=== PATIENT | male | born 1970 | race Caucasian/White ===

== ENCOUNTER 2024-06-15 18:37 | Emergency (ER) | payer OTHER, SELFPAY ==
[2024-06-15] VITALS (9 sets, daily range): BP systolic 117–131; BP diastolic 77–88; PULSE 74–88; RESP 18–19; TEMP 36.3–36.6; O2SAT 94–98
--- NOTE | ~2024-06-15 | XR_ITS ---
XR chest 2V Ordering provider: Diane Cook PA-C History: 53 years Male with . cough . Comparison: None. FINDINGS: MEDIASTINUM: The cardiac silhouette is not enlarged. Prominent both tavares. LUNGS: No infiltrates, effusions or pneumothorax. Density seen in the right and left lower lobes whic h may be a nipple shadows. Repeat exam with nipple markers advised.. OTHER: No free air under the diaphragm. Degenerative changes of the spine. IMPRESSION: No acute cardiopulmonary pathology. Reviewed, dictated and finalized at location A.
--- OUTSIDE RECORDS SUMMARY | 2024-06-15 18:40 | XMS_ITS | Data Portability ---
Author Organization [facility], [facility] IP Address [address] [place] [id number] Care Team Providers Care Stock Analyst Name Role Phone RAFAEL SCHWAB Referring Provider [phone] JOANNE LOPEZ Primary Care Provider [phone] Assessment Encounter Date Assessment Date Assessment LastModified by Organization Details LastModified Time 11/26/2016 11/26/2016 IMPRESSION: Numbness for evaluation. Rule out carpal tunnel syndrome. Recommend nerve conduction studies of bilateral upper extremities. He will be seen again in followup after the nerve conduction studies. No focal neurological deficits are elicited at this time. History of neck surgery for numbness in the arms and legs before, 4 years ago. [email or web address] Not available 12/02/2016 12:59:32 Plan of Treatment Reminders Order Date Submit Date Provider Last Modified By Organization Details Last Modified Time Details Appointments None record ed. Lab None record ed. Referral None record ed. Procedures None record ed. Surgeries None record ed. Imaging None record ed. Medication Orders None record ed. Patient TargetsNo targets recorded. Patient InstructionsNo instructions recorded. Reason for Referral None Reported. Problems Name Problem SNOMED Code Status Onset Date Resolution Date Notes Provider Name and Address Organization Details Recorded Time Numbness 33570130 Active [address] [facility] 11/26/2016 14:21:05 Problem Notes None recorded. Medical Equipment None Reported. Allergies No known drug allergies Medications Name Sig Start Date Stop Date Status Note LastModified by Organization Details LastModified Time ibuprofen active Not Available Not Jerilyn ilable Not Available Vitals Date Recorded Body height Body mass index (BMI) Body weight Heart rate Systolic blood pressure Diastolic blood pressure Provider Name and Address Organization Details Last Updated DateTime 7 172.72 cm 31.2 kg/m2 83181.4 4 g 83 /min 141 mm[Hg] 95 mm[Hg] Carmen Sanchez [facility] 7 14:20:39 Social History Question Answer Notes LastModified by Organizat ion Details LastModified Time Tobacco Smoking Status Never Smoker Carmen orozco, [place] - [facility] 11/26/2016 14:21:15 What Was The Date Of Your Most Recent Tobacco Screening? 11/26/2016 Information n ot available 10/13/2018 Sex: Unknown Functional Status None recorded. Mental Status None recorded. Family History Nothing Reported. Medical History Condition Response Orthopedic Problems Y Past Encounters Encounter ID Performer Location Encounter Start Date Encounter Closed Date Diagnosis/Indication Diagnosis SNOMED-CT Code Diagnosis ICD10 Code Diagnosis Note [id number] [facility] [address] [place] [address] 11/26/2016 14:00:38 12/04/2016 10:07:43 Paresthesia of lower extremity 638970960 R20.2 Paresthesi a of upper limb 55465454 R20.2 Health Concerns Section Related Observation LastModified by Organization Detai ls LastModified Time None Recorded Concern Status LastModified by Organization Details LastModified Time None Recorded Advance Directives Directive None Recorded Payers Encounter Date Sequence Insurance Name Policy Number Policy Roche Covered Member ID Roche Member ID Guarantor Name 11/26/2016 1 *SELF PAY* [place] ex [place] Notes Date Note Type Note Provider Name and Address Organization Details Recorded Time 11/26/2016 text/html This is a 45-year-old male who was seen on neurological evaluation for tingling and numbness in the hands and the legs. He reports these symptoms are present for 2 months. He denies any trouble seeing, hearing or swallowing. Denies any bladder or bowel difficulties. He reports a history of surgery of the neck for some problem with gait and numbness [address] Marks. He says he had some x-rays of the C-spine done but reports are not available. Not Available [facility] 12/04/2016 10:09:14
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
--- OUTSIDE RECORDS SUMMARY | 2024-06-15 18:40 | XMS_ITS | CONTINUITY OF CARE DOCUMENT ---
Author Name adinajenniferdaniel Address Unknown Organization [facility] Address [address] [address] [facility] [address] [place] [address] Phone [phone] Care Team Providers Care Cigarette Roller Name Role Phone Augustin NIETO, Marylou Unavailable [phone] JESSICA NIETO, JOANNE Unavailable [phone] INSURANCE PROVIDERS Payer name Policy type / Coverage type [place] red republican ID HEALTHCARE AND FAMILY SERVICES Medicaid 2 [id number]
--- NOTE | 2024-06-15 18:53 | ED_ITS ---
HPI - SOB/Dyspnea General Chief Complaint: Shortness of Breath/Dyspnea Stated Complaint: cold symptoms, wheezing , nausea Time Seen by Provider: 06/15/24 18:45 History of Present Illness HPI Narrative: 53-year-old male presents emergency department for URI symptoms for the past 7- 10 days. Patient is reporting productive cough, nasal congestion, head fullness, wheezing, generalized malaise and fevers. Denies nausea vomiting diarrhea. States his is also ill similar symptoms. He went to his 's PCP yesterday at her appointment was advised to go to the ER for evaluation because the PCP did not take the patient's insurance. He denies history of asthma or COPD. He admits to smoking 10 cigarettes a day for the past 35 years. Related Data Allergies Allergy/AdvReac Type Severity Reaction Status Date / Time cephalexin AdvReac sue Verified 06/15/24 21:02 syndrome Review of Systems Review of Systems: All systems reviewed & are unremarkable except as noted in HPI and below Exam Narrative: GENERAL: Well-appearing, well-nourished, and in no acute distress. HEAD: Normocephalic, atraumatic. EYES: EOMI. ENT: Nares congested. Tenderness over the right ethmoid sinus. Mucous membranes moist. Posterior pharynx without erythema or edema, no tonsillar hypertrophy or exudates. Bilateral TMs are easley nonbulging with normal canals NECK: Supple. CHEST: Coarse breath sounds in all lung jaime, fine wheezing in the lower lung field HEART: Regular rate and rhythm. No murmur heard. Normal peripheral pulses. ABDOMEN: Soft, nontender, nondistended, normal active bowel sounds. EXTREMITIES: Normal range of motion. No edema. SKIN: Warm, dry, no rash. NEURO: No focal deficits. Alert and oriented x3 Course Vital Signs Vital signs: Vital Signs Blood Pressure 125/86 06/15/24 18:59 Pulse Oximetry 96 06/15/24 18:59 Temperature 97.4 F L 06/15/24 19:18 Pulse Rate 84 06/15/24 19:16 Respiratory Rate 19 06/15/24 19:15 Blood Pressure 124/77 06/15/24 20:00 Pulse Oximetry 94 06/15/24 20:35 Oxygen Delivery Room Air 06/15/24 20:35 MDM - SOB/Dyspnea MDM Narrative Medical decision making narrative: 53-year-old male presents emergency department for URI symptoms for the past 7- 10 days. Reported productive cough, wheezing, nasal congestion, sinus pressure. Triage vitals are stable. Patient is afebrile nontoxic appearing. Exam significant for the above. He does have coarse breath sounds and fine wheezing in the lower lung jaime and was given a DuoNeb with improvement. Oxygen saturations stable. Repeat lung exam is significantly improved. Viral swabs are negative. Chest x-ray shows no acute cardiopulmonary findings. Patient updated on results. Given duration of symptoms, will start the patient on doxycycline for sinusitis/bronchitis, Flonase and albuterol inhaler. Advised smoking cessation and follow-up with PCP. Discussed return precautions. He is agreeable with the plan verbalized understanding. Discharged in stable c ondition. Lab Data Labs: Lab Results 06/15/24 Range/Units 18:56 Influenza A (RT-PCR) Negative (Negative) Influenza B (RT-PCR) Negative (Negative) RSV (RT-PCR) Negative (Negative) SARS-CoV-2 RNA (RT-PCR) Negative (Negative) Discharge Plan Discharge Clinical Impression: Bronchitis Sinusitis Qualifiers: Sinusitis location: unspecified location Chronicity: acute Recurrence: not specified as recurrent Qualified Code(s): J01.90 - Acute sinusitis, unspecified Patient Disposition: Home, Self-Care Condition: Stable Instructions: Antibiotic Form, How to Stop Smoking (ED), Sinusitis (ED), Acute Bronchitis (ED) Additional Instructions: Your evaluated in the emergency department for sinus congestion, wheezing and cough. The chest x-ray shows no evidence of pneumonia. COVID and flu test were negative. Her presentation is consistent with a sinus infection and bronchitis. Please take the antibiotics as directed, use the Flonase and albuterol inhaler as prescribed. Please stop smoking. Follow-up with primary care. Return to the emergency department if you develop a fever 100.7 or greater, difficulty breathing, you are unable to tolerate food or fluids, or other concerning symptoms. Patient Language: Sami Prescriptions: New doxycycline monohydrate 100 mg capsule 100 mg PO BID Qty: 14 0RF albuterol sulfate 90 mcg/actuation HFA aerosol inhaler 1 inh inhalation QID PRN (Reason: shortness of breath or wheezing) Qty: 6.7 0RF fluticasone propionate [Flonase Allergy Relief] 50 mcg/actuation spray,suspension 1 spray intranasal Q12H Qty: 16 0RF Rx Instructions: administer into each nostril Follow-up/Referrals: Levi,Thien Barros MD [Primary Care Provider] - Raquel Porter DO [Physician] -
[2024-06-15] MEDS: IPRATROPIUM 0.5 MG/ALBUTEROL SULFATE 2.5 MG AMPUL.NEB 3 ML INHALATION (19:05)
--- OUTSIDE RECORDS SUMMARY | 2024-06-15 19:17 | XMS_ITS | Clinical Summary ---
Author Organization [facility] Address [address] [place] [address] Care Team Providers Care Securities Adviser Name Role Phone Unavailable Primary Care Provider Unavailabl e Social History Tobacco Use Types Packs/Day Years Used Date Smoking Tobacco: Never Assessed Sex and Gender Information Value Date Recorded Sex Assigned at Not on file Legal Sex Male 8:16 PM CDT Gender Identity Not on file Sexual Orientation Not on file Last Filed Vital Signs Vital Sign Reading Time Taken Comments Blood Pressure 116/78 11/09/2016 10:10 AM CDT Pulse 55 11/09/2016 10:10 AM CDT Temperature - - Respiratory Rate - - Oxygen Saturation - - Inhaled Oxygen Concentration - - Weight 92.5 kg (204 lb) 11/09/2016 10:10 AM CDT Height 172.7 cm (5' 8 ) 11/09/2016 10:10 AM CDT Body Mass Index 31.02 11/09/2016 10:10 AM CDT Plan of Treatment Health Maintenance Due Date Last Done Comments Colorectal Cancer Screening Colonoscopy (10 Years) 1971 Annual Physical 12/02/1974 Hepatitis C 12/02/1989 DTaP, Tdap and Td Vaccines ( 1 - Tdap) 12/02/1990 Hepatitis B Vaccines (1 of 3 - 19+ 3-dose series) 12/02/1990 Zoster Vaccines (1 of 2) 12/02/2021 COVID-19 Vaccine (2023-2 5 season) 2023 Influenza Adult (#1) 2023 Meningococcal B Vaccine Aged Out No l onger eligible based on patient's age to complete this topic Meningococcal Vaccine Aged Out No koby starr eligible based on patient's age to complete this topic Pneumococcal Vaccine: Pediat rics (0 to 5 Years) and At-Risk Patients (6 to 64 Years) Aged Out No longer eligible b ased on patient's age to complete this topic RSV Immunizations Under 20 Months Aged Out No longer eligible based on patient's age to complete this topic Additional Health Concerns Infection Onset Date Last Indicated MRSA 04/10/2018 04/10/2018
--- OUTSIDE RECORDS SUMMARY | 2024-06-15 19:17 | XMS_ITS | Encounter Summary ---
Author Organization [facility] Address [address] [place] [address] Care Team Providers Care Lodging House Keeper Name Role Phone Unavailable Primary Care Provider Unavailabl e Encounter Details Date Type Department Care Team (Late st Contact Info) Description 11/09/2016 Abstract [facility] Conversion Md, Generic Conversion, Social History Tobacco Use Types Packs/Day Years Used Date Smoking Tobacco: Never Assessed Sex and Gender Information Value Date Recorded Sex Assigned at Not on file Legal Sex Male 8:16 PM CDT Gender Identity Not on file Sexual Orientation Not on file documented as of this encounter Plan of Treatment Not on file documented as of this encounter Visit Diagnoses Not on filedocumented in this encounter Additional Health Concerns Infection Onset Date Last Indicated Resolved Time MRSA 04/10/2018 04/10/2018 documented as of this encounter
--- OUTSIDE RECORDS SUMMARY | 2024-06-15 19:17 | XMS_ITS | CONTINUITY OF CARE DOCUMENT ---
Author Name adinajenniferdaniel Address Unknown Organization [facility] Address [address] [place] [address] Phone [phone] Care Team Providers Care Cell Geneticist Name Role Phone Augustin NIETO, Marylou Unavailable [phone] JESSICA NIETO, JOANNE Unavailable [phone] INSURANCE PROVIDERS Payer name Policy type / Coverage type [place] red libertarian ID [employer] AND FAMILY SERVICES Medicaid 2 [id number]
[2024-06-15 19:37] LABS: Influenza A QL RT-PCR Negative (Negative); Influenza B QL RT-PCR Negative (Negative); RSV RNA, RT-PCR Negative (Negative); SARS-CoV-2 RNA PCR Negative (Negative)
[2024-06-15] MEDS: DOXYCYCLINE HYCLATE 100 MG TABLET PO (21:06)
== END 2024-06-15 21:10 | disposition home or self-care (01) ==
PROVIDERS: Emergency Provider Physician Assistant; PCP Family Medicine
DX: J40 Bronchitis, not specified as acute or chronic (principal); J01.90 Acute sinusitis, unspecified; F17.210 Nicotine dependence, cigarettes, uncomplicated; Z20.822 Contact with and (suspected) exposure to COVID-19
CPT/HCPCS: 71046; 87637; 94640; 99283; A9270

== ENCOUNTER 2024-09-18 18:09 | Emergency (ER) | payer OTHER, SELFPAY ==
--- NOTE | ~2024-09-18 | CT_ITS ---
EXAMINATION: CT lumbar spine wo con DATE: 09/18/2024 18:35 INDICATION: back pain . TECHNIQUE: Computed tomography (CT) of the lumbar spine was performed without intravenous contrast. A utomated exposure control and iterative reconstruction technique were employed. The dose-length produ ct was 326.11 mGy-cm. COMPARISON: None. FINDINGS: 5 nonrib-bearing lumbar-type vertebral bodies. Pedicles intact. 4 mm anterolisthesis at L5- S1. Bilateral L5 pars defects. Vertebral body heights preserved. Multilevel lumbar degenerative disc disease, severe at L5-S1, mild at the remaining lumbar levels. Multilevel mild facet arthropathy. Mod erate left L5-S1 neural foraminal narrowing secondary to degenerative changes. No severe central deja l narrowing. IMPRESSION: No acute fracture or traumatic malalignment in the lumbar spine. Reviewed, dictated and finalized at location K.
[2024-09-18 18:12] VITALS: BP 128/82; PULSE 77; RESP 18; TEMP 36.7; O2SAT 99
--- OUTSIDE RECORDS SUMMARY | 2024-09-18 18:12 | XMS_ITS | Encounter Summary ---
Author Organization [facility] Address [address] [place] [address] Care Team Providers Care Structural Steel Equipment Erector Name Role Phone Unavailable Primary Care Provider Unavailabl e Encounter Details Date Type Department Care Team (Late st Contact Info) Description 11/09/2016 Abstract [facility] Conversion Md, Generic Conversion, Social History [...]
--- OUTSIDE RECORDS SUMMARY | 2024-09-18 18:12 | XMS_ITS | Clinical Summary ---
Author Organization [facility] Address [address] [place] [address] Phone Care Team Providers Care Windrower Operator Name Role Phone Provider, None Primary Care Provider Unavailabl e Allergies Active Allergy Reactions Criticality Noted Date Comments Cephalexin Unknown 11/25/2018 Gary wilcox Medications ALPRAZolam (Xanax) 0.25 MG TabletIndication s:Panic disorder Take 1 Tablet by mouth 2 times daily as needed for Anxiety. 60 Tablet 2 08/15/2024 Active lamoTRIgine (LaMICtal) 100 MG TabletIndication s:Bipolar 1 disorder (HCC) Take 1 Tablet by mouth daily. 30 Tablet 2 08/15/2024 Active Active Problems Problem Noted Date Diagnosed Date Attention deficit hyperactiv ity disorder (ADHD), combined type 08/15/2024 Panic disorder 08/15/2024 Bipolar 1 disorder 07/06/2024 Encounters Date Type Department Care Team Description 08/15/2024 2:15 PM CDT Office Visit [facility] [address] [place] [address] [phone] Siri Georges APN, BROTH MIXER Bipolar 1 disorder (HCC) (Primary Dx); Attention deficit hyperactivity disorder (ADHD), combined type; Panic disorder 08/15/2024 Travel 07/06/2024 1:30 PM CDT Office Visit [facility] [address] [place] [address] [phone] Siri Georges APN, BROTH MIXER Bipolar 1 disorder (HCC) (Primary Dx) 07/06/2024 Travel from Last 3 Months Family History Medical History Relation Name Comments Schizophrenia Nephew Bipolar Disorder Son Relation Name Status Comments Nephew Alive Son Alive Social History Tobacco Use Types Packs/Day Years Used Date Smoking Tobacco: Every Day Cigarettes Smokeless Tobacco: Never Tobacco Cessation:Ready to Q uit: Not Asked; Counseling Given: Not Answered Alcohol Use Standard Drinks/Week Comments Not Currently 0 (1 standard drink = 0.6 oz pur e alcohol) [facility] Utilities Answer Date Recorded In the past 12 months has th e electric, gas, oil, or water company threatened to shut off services in your home? Yes 08/15/2024 Social Connection and Isolation Panel Answer Date Recorded In a typical week, how many times do you talk on the phone with family, friends, or neighbors? More than three times a week 08/15/2024 How often do you get togethe r with friends or relatives? Once a week 08/15/2024 How often do you attend chur ch or yazidism services? Never 08/15/2024 Do you belong to any clubs o r organizations such as druze groups, unions, fraternal or athletic groups, or school groups? No 08/15/2024 How often do you attend meet ings of the clubs or organizations you belong to? Never 08/15/2024 Marital Status Not on file 08/15/2024 AUDIT-C Answer Date Recorded Q1: How often do you have a drink containing alcohol? Never 08/15/2024 Q2: How many drinks containi ng alcohol do you have on a typical day when you are drinking? Patient does not drink Q3: How often do you have si x or more drinks on one occasion? Never 08/15/2024 Overall Financial Resource Strain (CARDIA) Answe r Date Recorded How hard is it for you to pa y for the very basics like food, housing, medical care, and heating? Not hard at all 08/15/2024 [facility] [place] [facility] Occupat ional Health - Occupational Stress Questionnaire Answer Date Recorded Do you feel stress - tense, restless, nervous, or anxious, or unable to sleep at night because your mind is troubled all the time - these days? Very much 08/15/2024 Exercise Vital Sign Answer Date Recorde d On average, how many days pe r week do you engage in moderate to strenuous exercise (like a brisk walk)? 5 days 08/15/2024 On average, how many minutes do you engage in exercise at this level? 150+ min 08/15/2024 Hunger Vital Sign Answer Date Recorded Within the past 12 months, y ou worried that your food would run out before you got the money to buy more. Never true 08/16/19 25 Within the past 12 months, t he food you bought just didn't last and you didn't have money to get more. Never true 08/15/2024 PRAPARE - Transportation Answer Date Re corded In the past 12 months, has l ack of transportation kept you from medical appointments or from getting medications? No 07/21 In the past 12 months, has l ack of transportation kept you from meetings, work, or from getting things needed for daily living? No 08/15/2024 Housing Stability Vital Sign Answer Emile e Recorded In the last 12 months, was t here a time when you were not able to pay the mortgage or rent on time? No 08/15/2024 In the past 12 months, how m any times have you moved where you were living? 0 08/15/2024 At any time in the past 12 m [facility], were you homeless or living in a [facility] (including now)? No 08/15/2024 Sex and Gender Information Value Date Recorded Sex Assigned at Not on file Legal Sex Male 8:58 PM MANAGER NUCLEAR Gender Identity Not on file Sexual Orientation Not on file Last Filed Vital Signs Vital Sign Reading Time Taken Comments Blood Pressure 132/73 08/15/2024 11:15 AM CDT Pulse 86 08/15/2024 11:15 AM CDT Temperature - - Respiratory Rate 20 08/15/2024 11:15 AM CDT Oxygen Saturation 98% 08/15/2024 11:15 AM CDT Inhaled Oxygen Concentration - - Weight 78.9 kg (174 lb) 08/15/2024 11:15 AM CDT Height 172.7 cm (5' 8) 08/15/2024 11:15 AM CDT Body Mass Index 26.46 08/15/2024 11:15 AM CDT Plan of Treatment Upcoming Encounters Date Type Department Care Team (Late st Contact Info) Description 10/05/2024 10:45 AM CDT Office Visit [facility] [address] [facility] [place] [phone] Siri Georges APN, BROTH MIXER [address] [facility] [place] [address] Health Maintenance Due Date Last Done Comments Hepatitis C Virus (HCV) Screening 1970 TdaP Immunization 1971 Hepatitis B Immunization (1 of 3 - 19+ 3-dose series) 12/02/1990 Pneumococcal Immunization (5 0+ years) (1 of 2 - PCV) 12/02/1990 Cologuard 12/02/2016 Colonoscopy 12/02/2016 Colorectal Cancer Screening 12/02/2016 Immunochemical Fecal Occult Blood 12/02/2016 Zoster Immunization (1 of 2) 12/02/2021 SARS-COV-2 Immunization ( - season) 2023 Influenza Immunization (Seas on Ended) 2024 01/13/2019 Respiratory Syncytial Virus (RSV) Immunization (Adult) (1 - 1-dose 75+ series) 12/02/2046 Human Papillomavirus (HPV) Immunization Aged Out No longer eligible b ased on patient's age to complete this topic Meningococcal Immunization (ACWY) Aged Out No longer eligible based on patient's age to complete this topic Rotavirus Immunization Aged Out No lo nger eligible based on patient's age to complete this topic Insurance [facility]ID [facility] Care Teams Windrower Operator Relationship Specialty Start Date End Date Provider, None [place] PCP - General 07/06/24
--- OUTSIDE RECORDS SUMMARY | 2024-09-18 18:12 | XMS_ITS | Clinical Summary ---
Author Organization [facility] Address [address] [place] [address] Care Team Providers Care Computer Meteorologist Name Role Phone Unavailable Primary Care Provider [...] 10:10 AM CDT Height 172.7 cm (5' 8) 11/09/2016 10:10 AM CDT Body Mass Index 31.02 11/09/2016 10:10 AM CDT Plan of Treatment Health Maintenance Due Date Last Done Comments Colorectal Cancer Screening Colonoscopy (10 Years) 1971 Annual Physical 12/02/1974 Hepatitis C 12/02/1989 DTaP, Tdap and Td Vaccines ( 1 - Tdap) 12/02/1990 Hepatitis B Vaccines (1 of 3 - 19+ 3-dose series) 12/02/1990 Pneumococcal Vaccine: 50+ Ye ars (1 of 1 - PCV) 12/02/2021 Zoster Vaccines (1 of 2) 12/02/2021 COVID-19 Vaccine ( - 2023-2 5 season) 2023 Meningococcal B Vaccine Aged Out No [...]
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
--- NOTE | 2024-09-18 18:55 | PC.NURSE ---
no answer at 185 when called to a room, did not tell intake nurse he was leaving or declining to be seen
[2024-09-18 19:39] LABS: Add Urine Microscopic? NO; Appearance Urine Clear (Clear); Glucose Urine UA Negative (Negative); Leukocyte Esterase Ur Negative LEU/UL (Negative); Nitrate Urine Negative (Negative); Specific Grav Ur 1.020 (1.001-1.035)
[2024-09-18] MEDS: KETOROLAC (*BKC) 60 MG/2 ML VIAL IM (19:46)
[2024-09-18 19:59] VITALS: BP 121/76; PULSE 73; RESP 16; O2SAT 98
--- OUTSIDE RECORDS SUMMARY | 2024-09-18 22:18 | XMS_ITS | Clinical Summary ---
Author Organization [facility] Address [address] [place] [address] Care Team Providers Care Skiver Machine Operator Name Role Phone Unavailable Primary Care Provider [...]
--- OUTSIDE RECORDS SUMMARY | 2024-09-18 22:18 | XMS_ITS | Encounter Summary ---
Author Organization [facility] Address [address] [place] [id number] Care Team Providers Care Billing Rep Name Role Phone Unavailable Primary Care Provider Unavailabl e Encounter Details Date Type Department Care Team (Late st Contact Info) Description 11/09/2016 Abstract [facility] Clinics Conversion Md, Generic Conversion, Social History [...]
--- OUTSIDE RECORDS SUMMARY | 2024-09-18 22:18 | XMS_ITS | Clinical Summary ---
Author Organization [facility] Address [address] [place] [address] Phone Care Team Providers Care Riveter Portable Machine Name Role Phone Provider, None Primary Care [...] Description 08/15/2024 2:15 PM CDT Office Visit [facility] [address] [place] [address] [phone] Siri Georges APN, [employer] Bipolar 1 disorder (HCC) (Primary Dx); Attention deficit hyperactivity disorder (ADHD), combined type; Panic disorder 08/15/2024 Travel 07/06/2024 1:30 PM CDT Office Visit [facility] [address] [place] [address] [phone] Siri Georges APN, [employer] Bipolar 1 disorder (HCC) (Primary Dx) 07/06/2024 [...] drink = 0.6 oz pur e alcohol) [facility] Utilities Answer Date Recorded In the past [...] often do you attend chur ch or cheondoism services? Never 08/15/2024 Do you belong to any clubs o r organizations such as presybeterian groups, unions, fraternal or athletic groups, or [...] and heating? Not hard at all 08/15/2024 [facility] [place] [facility] - Occupational Stress [...] any time in the past 12 m [facility], were you homeless or living in a snf (including now)? 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
[2024-09-18 23:00] VITALS: BP 119/68; PULSE 77; RESP 15; O2SAT 99
[2024-09-18] MEDS: HYDROcodone/acetaminophen (*CRX) 5-325 MG TABLET 1 TAB PO (23:41)
[2024-09-18] MEDS: diazePAM INJ (*CRX) 10 MG/2 ML SYRINGE 2.5 MG IM (23:42)
[2024-09-18 23:52] LABS: Hematocrit 48.9 % (42.0-52.0); Hemoglobin 16.4 g/dL (14.0-18.0); Immature Granulocyte Percent A 0.4 % (0-0.5); Lymphocytes Absolute Auto 1.34 K/mm3 (0.9-3.2); Mean Corpuscular HGB Conc 33.5 g/dl (32-36); Mean Corpuscular Hemoglobin 33.2 pg (26-34); Mean Corpuscular Volume 99.0 fl (80-100); Nucleated Red Blood Cells Absolute Auto 0.000 K/mm3 (0.0-0.012); Nucleated Red Blood Cells Perc 0.0 % (0.0-0.2); Platelet Count Result 217 k/mm3 (150-375); Red Blood Count 4.94 M/mm3 (4.6-6.20); White Blood Count 6.8 K/mm3 (4.5-10.0)
[2024-09-19 00:06] LABS: Alanine Aminotransferase 19 U/L (6-50); Albumin Level 4.0 g/dL (3.5-5.1); Alkaline Phosphatase 96 U/L (38-126); Anion Gap 6 mmol/L (4-12); Aspartate Amino Transferase 27 U/L (17-59); Bilirubin,Total 0.3 mg/dL (0.2-1.3); Blood Urea Nitrogen 22 mg/dL (9-20); Calcium 9.3 mg/dL (8.4-10.2); Carbon Dioxide 27 mmol/L (22-30); Chloride 106 mmol/L (98-107); Creatine Kinase 78 U/L (55-170); Estimated CRCL calculation 76 ml/min; Estimated Glomerular Filt Rate > 60; Glucose 127 mg/dL (65-110); Magnesium 1.9 mg/dL (1.6-2.3); Potassium 4.3 mmol/L (3.4-5.0); Sodium 139 mmol/L (137-145); Total Protein 7.0 g/dL (6.3-8.2)
[2024-09-19 00:34] LABS: Cannabinoid Screen Urine Positive (Negative)
[2024-09-19 01:30] VITALS: BP 120/81; PULSE 69; RESP 17; O2SAT 100
[2024-09-19 01:31] VITALS: BP 120/81; PULSE 69; RESP 17; O2SAT 100
== END 2024-09-19 01:33 | disposition home or self-care (01) ==
PROVIDERS: Registered Nurse; Emergency Provider Student in an Organized Health Care Education/Training Program
DX: M54.50 Low back pain, unspecified (principal); G89.11 Acute pain due to trauma; F19.90 Other psychoactive substance use, unspecified, uncomplicated; W10.9XXA Fall (on) (from) unspecified stairs and steps, initial encounter
CPT/HCPCS: 36415; 72131; 80053; 80307; 81003; 82550; 83735; 85025; 96372; 99284; A9270; J1885; J3360; J7512